=== PATIENT | male | born 2000 | race Caucasian/White ===

== ENCOUNTER 2021-01-11 17:39 | Emergency (ER) | payer SELFPAY ==
--- NOTE | ~2021-01-11 | XR_ITS ---
EXAMINATION: XR abdomen/kub 1V INDICATION: Hematuria and right flank pain TECHNIQUE: Supine views of the abdomen were obtained on 2 radiographs. COMPARISON: None FINDINGS: No urolithiasis is identified. The bowel gas pattern is normal. The visualized lung bases a re clear. The osseous structures are unremarkable. IMPRESSION: 1. No radiographic correlate for the patient's symptoms. Reviewed, dictated and finalized at location A. [facility]
--- NOTE | 2021-01-11 17:42 | ED.GENADULT ---
HPI - General Adult General Chief complaint: Urogenital-Male Stated complaint: pain lower right back side /stomach Time Seen by Provider: 01/11/21 17:42 Source: patient Mode of arrival: ambulatory Limitations: no limitations History of Present Illness HPI narrative: 20-year-old male patient presents to the [facility] with complaints of right flank pain for the past 2 days. Patient states he did take some ibuprofen for this and it did help. Patient denies any pain with urination. Patient states the pain does wrap around the side and goes into the abdomen. Denies any testicular pain. Denies any penile discharge. Denies any concerns for STDs. Patient states his last bowel movement was this morning and was normal. Related Data Allergies Allergy/AdvReac Type Severity Reaction Status Date / Time No Known Allergies Allergy Verified 01/11/21 19:15 Review of Systems Review of Systems: Narrative: CONSTITUTIONAL: Denies fever, chills, or sweats. EYES: Denies visual changes, redness, or discharge. ENT: Denies rhinorrhea, congestion, sore throat, or otalgia. CARDIOVASCULAR: Denies chest pain, palpitations, or edema. RESPIRATORY: Denies cough or dyspnea. GASTROINTESTINAL: Positive right lower abdominal pain, denies nausea, vomiting, or diarrhea. GENITOURINARY: Denies dysuria or hematuria. SKIN: Denies rash or itching. MUSCULOSKELETAL: Positive right low flank pain, denies joint pain, or myalgia. NEUROLOGIC: Denies headache, numbness, or weakness. PSYCHIATRIC: Denies anxiety or depression. PMFSH Comments At the time of my signature I agree with nursing past medical history, surgical, social, and family history. There is no relevant family history pertinent to the presenting complaint. Exam Narrative: Exam Narrative: GENERAL: Well-appearing, well-nourished, and in no acute distress. HEAD: Normocephalic, atraumatic. EYES: PERRLA and EOMI. ENT: Nares clear, no rhinorrhea or epistaxis. Mucous membranes moist. NECK: Supple. No lymphadenopathy CHEST: Clear to auscultation. No respiratory distress. HEART: Regular rate and rhythm. No murmur heard. Normal peripheral pulses. ABDOMEN: Soft, flat, nondistended. No guarding, rebound tenderness, or rigid. No pulsatilla masses. Bowel sounds present in all four quadrants. No organomegaly. Negative Mondragon?s sign. No periumbicial tenderness. No Supra public tenderness or distension. Good femoral pulses bilaterally. No hernia noted. No scars or surface trauma. No CVA tenderness on percussion EXTREMITIES: Normal range of motion. No edema. SKIN: Warm, dry, no rash. NEURO: No focal deficits. Alert and oriented x3. Course Reevaluation(s) Reevaluation #1: Reevaluated patient after his KUB had resulted. Discussed with him that the KUB is negative for any obvious kidney stone. However I am kind of concerned that he has some blood present in his urine dip. Discussed with patient I will go ahead and treat him with some antibiotics today just to rule out any urinary tract infection that could be causing the symptoms. Discussed with him that we will send the urine off to the lab for culture to see if it grows any bacteria. Discussed with patient that if his pain gets significantly worse I highly encouraged him to go the ER to obtain a CT to further evaluate for kidney stone. Patient verbalized understanding denies any other questions or concerns at this time. Date: 01/11/21 Time: 19:19 Vital Signs Vital signs: Vital Signs Temperature 36.8 C 01/11/21 18:00 Pulse Rate 59 L 01/11/21 18:00 Respiratory Rate 16 01/11/21 18:00 Blood Pressure 137/71 01/11/21 18:00 Pulse Oximetry 98 01/11/21 18:00 Temperature 36.8 C 01/11/21 18:00 Pulse Rate 59 L 01/11/21 18:00 Respiratory Rate 16 01/11/21 18:00 Blood Pressure 137/71 01/11/21 18:00 Pulse Oximetry 98 01/11/21 18:00 Vital signs reviewed Medical Decision Making Differential Diagnosis Differential Diagnosis: Differential diagnosis: A
[2021-01-11 18:00] VITALS: BP 137/71; PULSE 59; RESP 16; TEMP 36.8; O2SAT 98
== END 2021-01-11 19:20 | disposition home or self-care (01) ==
PROVIDERS: Emergency Provider Nurse Practitioner Family
DX: R31.9 Hematuria, unspecified (principal)
CPT/HCPCS: 74018; 81003; 87086; 99213; G0463